=== PATIENT | female | born 1980 | race Caucasian/White ===

== ENCOUNTER → 2018-08-17 | Outpatient (CLI) | payer OTHER ==
[~2018-08-17] MED LIST: ACET325 PO; ALBU90OI INH; ALBU90OI61 INH; BECLOI16.8 IH; CODGUAEL PO; DOXY100 PO; GUAI600T33 PO; HYDGUAL120 PO; PRED10 PO; PRED20 PO; PROM25 PO; PROM25S PR; [UNRECOGNIZED DRUG - OTHER]
[2018-08-17 16:59] LABS: G. vaginalis (DNA Probe) Positive (NEGATIVE); T. vaginalis (DNA Probe) Negative (NEGATIVE)
[2018-08-17 17:00] LABS: Candida species (DNA Probe) Negative (NEGATIVE)
[2018-08-20 01:10] LABS: CHLAMYDIA TRACHOMATIS, NAA Positive (Negative); NEISSERIA GONORRHOEAE, NAA Negative (Negative)
[2018-08-20 03:10] LABS: HBSAG SCREEN Negative (Negative); HEP A AB, IGM Negative (Negative); HEP B CORE AB, IGM Negative (Negative); HEP C VIRUS AB <0.1 (0.0-0.9); HIV SCREEN 4TH GENERATION WRFX Non Reactive (Non Reactive)
== END | disposition home or self-care (01) ==
LOC: LAB 15:05 → LAB SHORT 15:05
PROVIDERS: Physician Assistant
DX: N72 Inflammatory disease of cervix uteri (principal)
CPT/HCPCS: 80074; 86592; 87389; 87480; 87491; 87510; 87591; 87660